=== PATIENT | female | born 2000 | race Caucasian/White ===

== ENCOUNTER 2022-05-01 21:12 | Inpatient (IN) ==
[2022-05-01 21:51] LABS: Bacteria,Urine Occasional /HPF (Few); Mucus,Urine Occasional /LPF (Occasional); RBC,Urine 1 /HPF (0-4); Squamous Epithelial Cell,Urine Occasional /HPF (0-10)
[2022-05-01 21:52] LABS: Bilirubin,Urine Negative (Negative); Blood, Urine Negative (Negative); Glucose,Urine (UA) Negative (Negative); Ketones,Urine Negative (Negative); Nitrite,Urine Negative (Negative); Protein,Urine Negative (Negative); Urine Appearance Clear (Clear); Urine Color Yellow (Yellow); Urine Specific Gravity 1.015 (1.001-1.035); Urine Urobilinogen 0.2 eU/dL (<2.0)
[2022-05-01] MEDS ORDERED: METHYLERGONOVINE 0.2 MG/1 ML AMP IM PRN (22:45)
[2022-05-01] MEDS ORDERED: LACTATED RINGERS 1,000 ML IV ONE (22:45)
[2022-05-01] MEDS ORDERED: miSOPROStoL 200 MCG TABLET RECTAL PRN (22:45)
[2022-05-01] MEDS ORDERED: OXYTOCIN/LR 20 UNIT/1,000 ML BAG IV ONE (22:45)
[2022-05-01] MEDS ORDERED: LACTATED RINGERS 500 ML IV PRN (22:45)
[2022-05-01] MEDS ORDERED: TRANEXAMIC ACID 1,000 MG in SODIUM CHLORIDE 0.9% 100 ML IV PRN (22:45)
[2022-05-01] MEDS ORDERED: ONDANSETRON 4 MG/2 ML VIAL IV PRN (22:45)
[2022-05-01] MEDS ORDERED: MEPERIDINE 50 MG/1 ML VIAL IV PRN (22:45)
[2022-05-01] MEDS ORDERED: CARBOPROST TROMETHAMINE 250 MCG/ML AMP IM PRN (22:45)
[2022-05-01] MEDS ORDERED: LACTATED RINGERS 1,000 ML IV SCH (23:00)
[2022-05-01] MEDS: PROMETHAZINE 25 MG/1 ML VIAL IM ONE (23:23)
[2022-05-01] MEDS: BUTORPHANOL 2 MG/ML VIAL IV PRN (23:24)
[2022-05-01 23:29] LABS: Basophils % 0.2 % (0.0-0.8); Eosinophils # 0.1 10*3/uL (0.0-0.87); Eosinophils % 0.6 % (0.00-10.9); Hematocrit 39.3 VOL% (35.7-47.0); Hemoglobin 13.1 GM/DL (12.0-16.0); Immature Granulocytes Absolute 0.25 #; Lymphocytes # 3.7 10*3/uL (1.4-4.0); Mean Corpuscular HGB Conc 33.3 GM/DL (32-36); Mean Corpuscular Volume 82.2 FL (87-102); Monocytes # 0.8 10*3/uL (0.11-0.8); Monocytes % 6.6 % (1.7-12.7); NRBC # 0.03 10*3/uL; Neutrophils % 60.6 % (38.7-73.9); Platelet Count 86 T/CUMM (130-400); Red Blood Count 4.78 MC/CUMM (3.8-5.5); Red Cell Distribution Width 13.6 % (9.3-17.3); White Blood Count 12.3 T/CUMM (4-12)
[2022-05-01 23:37] LABS: Alanine Aminotransferase 27 U/L (13-56); Albumin 2.5 G/DL (3.4-5.0); Alkaline Phosphatase 258 U/L (45-117); Aspartate Amino Transferase 20 U/L (0-37); Bilirubin,Total < 0.39 MG/DL (0.20-1.00); Blood Urea Nitrogen 11 MG/DL (7-18); Calcium 9.2 MG/DL (8.5-10.1); Carbon Dioxide 21 MMOL/L (21-32); Chloride 106 MMOL/L (98-107); Glucose 103 MG/DL (74-106); Osmolality,Calculated 271.8 MOS/KG (273-304); Potassium 4.1 MMOL/L (3.5-5.1); Sodium 137 MMOL/L (136-145); Total Protein 6.2 G/DL (6.4-8.2)
[2022-05-02] MEDS: PROMETHAZINE 25 MG/1 ML VIAL IM ONE (01:57)
[2022-05-02] MEDS: BUTORPHANOL 2 MG/ML VIAL IV PRN (02:44)
[2022-05-02] MEDS ORDERED: miSOPROStoL 200 MCG TABLET ONE (05:29)
[2022-05-02] MEDS ORDERED: SODIUM CHLORIDE 0.9% 0 ML IV ONE (05:29)
[2022-05-02] MEDS ORDERED: TRANEXAMIC ACID 1,000 MG/10 ML VIAL ONE (05:29)
[2022-05-02] MEDS ORDERED: METHYLERGONOVINE 0.2 MG/1 ML AMP ONE (05:29)
[2022-05-02] MEDS ORDERED: CARBOPROST TROMETHAMINE 250 MCG/ML AMP IM ONE (05:29)
[2022-05-02] MEDS ORDERED: OXYTOCIN/LR 20 UNIT/1,000 ML BAG IV ONE ×2 (05:29→07:17)
[2022-05-02] MEDS ORDERED: SODIUM CHLORIDE 0.9% 1,000 ML IV PRN (05:39)
[2022-05-02 06:51] LABS: Cord Arterial Blood HCO3 21.9 MMOL/L
[2022-05-02 06:55] LABS: Cord Venous Blood HCO3 22.3 MMOL/L; Cord Venous Blood PCO2 52.5 MMHG; Cord Venous Blood PO2 26.8
[2022-05-02] MEDS ORDERED: LANOLIN 50% CREAM 0.3 OZ TUBE TOP PRN (07:17)
[2022-05-02] MEDS ORDERED: HYDROCORTISONE 2.5% RECTAL CREAM 30 GM TUBE TOP PRN (07:17)
[2022-05-02] MEDS ORDERED: oxyCODONE/ACETAMINOPHEN 5-325 MG TABLET PO PRN ×2 (07:17)
[2022-05-02] MEDS ORDERED: MEASLES/MUMPS/RUBELLA VACCINE 0.5 ML VIAL SUBCUT ONE (07:17)
[2022-05-02] MEDS ORDERED: WITCH HAZEL PADS 100/JAR TOP PRN (07:17)
[2022-05-02] MEDS ORDERED: DIPH/TET/ACEL PERT BOOSTER VACCINE 0.5 ML VIAL IM ONE (07:17)
[2022-05-02] MEDS ORDERED: BISACODYL 10 MG SUPP RECTAL PRN (07:17)
[2022-05-02] MEDS ORDERED: BENZOCAINE 20%/MENTHOL 0.5% SPRAY 56 GM CAN TOP PRN (07:17)
[2022-05-02] MEDS ORDERED: RHO(D) IMMUNE GLOBULIN 300 MCG SYRINGE IM ONE (07:17)
[2022-05-02] MEDS ORDERED: ACETAMINOPHEN 325 MG TABLET PO PRN (07:17)
[2022-05-02] MEDS: DOCUSATE SODIUM 100 MG CAPSULE PO SCH ×2 (17:59→21:00)
[2022-05-03 05:10] LABS: Basophils % 0.1 % (0.0-0.8); Eosinophils # 0.1 10*3/uL (0.0-0.87); Eosinophils % 0.5 % (0.00-10.9); Hematocrit 35.9 VOL% (35.7-47.0); Hemoglobin 11.6 GM/DL (12.0-16.0); Immature Granulocytes % 1.3 %; Immature Granulocytes Absolute 0.18 #; Lymphocytes # 3.4 10*3/uL (1.4-4.0); Lymphocytes % 24.3 % (21.3-54.2); Mean Corpuscular HGB Conc 32.3 GM/DL (32-36); Mean Corpuscular Volume 84.3 FL (87-102); Monocytes # 0.8 10*3/uL (0.11-0.8); Monocytes % 5.7 % (1.7-12.7); Neutrophils % 68.1 % (38.7-73.9); Platelet Count 72 T/CUMM (130-400); Red Blood Count 4.26 MC/CUMM (3.8-5.5); White Blood Count 13.8 T/CUMM (4-12)
[2022-05-03 06:01] LABS: Platelet Estimate Decreased
[2022-05-03 06:55] LABS: Rubella Antibody IgG Result Reactive (NonReactive)
[2022-05-03] MEDS: DOCUSATE SODIUM 100 MG CAPSULE PO SCH ×2 (09:50→21:27)
[2022-05-04 09:45] VITALS: BP 117/58
[2022-05-04] MEDS: DOCUSATE SODIUM 100 MG CAPSULE PO SCH (09:47)
== END 2022-05-04 12:30 | disposition home or self-care (01) | DRG 807 ==
LOC: N.LDOUT 21:12 → N.LD 21:29 → N.OB 05-02 10:20
PROVIDERS: ADMIT Obstetrics & Gynecology; ATTEND Obstetrics & Gynecology